=== PATIENT | female | born 1975 | race Caucasian/White ===

== ENCOUNTER 2019-01-19 09:15 | Outpatient (CLI) | payer BC, SELFPAY ==
--- NOTE | 2019-01-19 15:00 | DI.RAD_ITS ---
EXAM: XR ELBOW RT COMPLETE CLINICAL HISTORY: RIGHT ELBOW PAIN M,77.11 LATERAL EPICONDYLITIS TECHNIQUE: COMPARISON: No exams were available for comparison FINDINGS: Four views were obtained. There is no evidence of elbow joint effusion or hemarthrosis. No bony or soft tissue abnormality seen. IMPRESSION:
== END 2019-01-19 09:35 ==
PROVIDERS: PCP Nurse Practitioner Family; Visit Provider Student in an Organized Health Care Education/Training Program
DX: M77.11 Lateral epicondylitis, right elbow (principal); M25.521 Pain in right elbow
CPT/HCPCS: 73080

== ENCOUNTER 2019-01-23 01:15 | Outpatient (CLI) | payer BC, SELFPAY ==
--- NOTE | 2019-01-23 10:00 | DI.MRI_ITS ---
EXAM: MR UPPER JOINT RT WO CLINICAL HISTORY: continued severe lateral epicondylitis M77.11 lateral Epicondylitis rt elbow. TECHNIQUE: Multiplanar multisequence MRI was performed. COMPARISON: XR ELBOW RT COMPLETE from 01/19/2019 FINDINGS: There is hyperintense signal seen within the common extensor tendon consistent with lateral epicondyl itis. The common flexor tendon appears intact as do the biceps tendon and the triceps tendon. The ulnar collateral ligament appears unremarkable. The radial collateral ligament appears thickened with increased signal. This is consistent with a sp rain. There is normal marrow signal no evidence of an occult fracture or avascular necrosis is identified. The articular cartilage appears grossly unremarkable. There is a small amount of fluid in the joint space. The muscles show normal signal in size. No significant muscular fatty atrophy is identified. No evidence of a soft tissue mass or focal fluid collection is appreciated. IMPRESSION: Findings consistent with lateral epicondylitis and sprain of the radial collateral ligament.
== END 2019-01-23 01:35 ==
PROVIDERS: PCP Nurse Practitioner Family; Visit Provider Student in an Organized Health Care Education/Training Program
DX: M77.11 Lateral epicondylitis, right elbow (principal); S53.431D Radial collateral ligament sprain of right elbow, subsequent encounter
CPT/HCPCS: 73221

== ENCOUNTER 2019-03-17 05:59 | Day surgery (SDC) | payer BC, SELFPAY ==
[2019-03-17] VITALS (7 sets, daily range): BP systolic 70–114; BP diastolic 26–72; PULSE 60–85; RESP 16–20; TEMP 36.5–36.9; O2SAT 97–100
[2019-03-17] MEDS: Lactated Ringers 1,000 ML 100 ML IV (06:32)
[2019-03-17] MEDS: ceFAZolin 2 GM/50 ML BAG IVPB (07:45)
[2019-03-17] MEDS: EPINEPHrine 30 MG/30 ML VIAL (08:56)
[2019-03-17] MEDS: Lactated Ringers 1,000 ML 30 ML IV (09:30)
--- NOTE | 2019-03-17 09:48 | W.PM.DSUDISC ---
Discharge Plan Disposition Patient Disposition: HOME Condition: Stable Discharge Details Reason For Visit: Right elbow surgery Attending Provider: Rayo Adorno Primary Care Provider: Yuri Morales Home Meds and New Rx's Prescriptions: New naproxen 250 mg tablet 250 - 500 mg PO BID PRN (Reason: pain, moderate) Qty: 30 RF: 0 aspirin 81 mg tablet,delayed release (DR/EC) 81 mg PO DAILY 14 Days Qty: 14 RF: 0 oxycodone 5 mg tablet 5 - 10 mg PO Q4H PRN (Reason: pain, severe) Qty: 9 RF: 0 Continued [id number] [Zffuvi-Mapci-ZTQ (with antiox)] 500-500-66.7 mg tablet 1 tab PO DAILY RF: 0 omega-3 fatty acids-fish oil [Fish Oil] 300-1,000 mg capsule 2 cap PO DAILY RF: 0 ascorbic acid (vitamin C) [Vitamin C] 500 MG tablet 500 mg PO DAILY RF: 0 multivitamin [Daily Multi-Vitamin] 1 EACH tablet 1 ea PO DAILY RF: 0 lysine HCl 500 MG tablet 1 tab PO DAILY RF: 0 Discharge Instructions Additional Instructions: Surgery: Right elbow arthroscopy with debridement lateral epicondylitis Activity: Advance to weightbearing as tolerated. Daily home range of motion exercises to restore full elbow extension and flexion. No heavy lifting or manual labor for at least 2 weeks. Prescriptions: Aspirin 81 mg take 1 daily to prevent a blood clot for 2 weeks Naproxen 250 mg take 1-2 every 12 hours with a meal as needed for moderate pain Oxycodone 5 mg take 1-2 every 4-6 hours as needed for severe pain You may use qkof-frr-kpmmgox Tylenol (acetaminophen) as needed for mild pain. These pain medications may be taken all at once or in different combinations as needed. Also, recommend Colace (docusate) as a stool softener as surgery and pain medicine cause constipation. Dressings: Leave dressing in place for 2-3 days. May then remove and leave open to air or cover incisions with Band-Aids. May shower after 5 days. Follow-up: 10-[address] Adorno Please call the office during business hours with any questions or concerns. Let us know right away if you develop any redness, drainage, fevers, chest pain, or trouble breathing. Do not drink alcohol or drive for at least 24 hours after anesthesia. Stand Alone Forms: DSU Post op Instructions, Press Anais (DSU) Referrals: Rayo Adorno MD [ [facility] STAFF PHYSICIAN] - Discharge Orders Discharge Orders: Discharge Order (Routine); Ordered 03/17/19 Ordered By: Rayo Adorno DS: Diagnosis Discharge Diagnosis (1) Right lateral epicondylitis: Status: Acute
--- NOTE | 2019-03-17 12:13 | W.PM.OP ---
Date of service: 03/17/19 Time of Service: 09:49 Operative Note Operative Note DATE OF PROCEDURE: 03/17/19 PRE-OP DIAGNOSIS: Right elbow lateral epicondylitis POST-OP DIAGNOSIS: same PROCEDURE: 1. Right elbow diagnostic arthroscopy 2. Right elbow debridement lateral epicondylitis including lateral epicondyle bone and ECRB tendon SURGEON: Rayo Adorno HOTBED OPERATOR: Gisel Jj ANESTHESIA: GETA and local ESTIMATED BLOOD LOSS: 5 TOURNIQUET TIME: 0 COMPLICATIONS: None Patient was transported to: PACU Patient's condition: stable Indications: Please see complete medical record for details. Procedure Description: The patient was taken to the operating room and transferred to the operating room table. Anesthesia was induced. All bony prominences were well-padded. Preoperative antibiotics were administered. The right elbow was prepped and draped in the usual sterile fashion. The correct patient, procedure, and side of the procedure were all verified prior to incision. 20 cc of normal saline were used to insufflate the right elbow joint through the lateral soft spot. The irina and spread technique was used to establish the proximal anteromedial portal. Initially the 2.7 mm arthroscope was inserted however this was too small and switched for a 4.0 mm arthroscope. A diagnostic arthroscopy of the anterior elbow compartment was performed showing some degeneration and fraying and thickening of the ECRB tendon origin at the lateral epicondyle. Otherwise the cartilage surfaces were normal of the radial head, capitellum, coronoid, distal humerus. There was mild synovitis laterally and medially. A spinal needle was used to localize a modified direct lateral working portal for lateral epicondyle debridement. The spinal needle was used to set the superior and inferior margins of the resection as well as free up disease tissue from its bony origin. Next a 15 blade was used to irina the skin followed by straight snap to spread down to the ECRB diseased tissue and the 15 blade was used in a meticulous fashion to release the ECRB tendon from the lateral epicondyle. Starting with a 3.5 mm full-radius shaver and then a 3.5 mm ultra aggressive shaver approximately 1 cm of ECRB origin tendon tissue was debrided and resected. The lateral epicondyle bony origin was lightly abraded to remove soft tissue remnant and ideally allow release of growth factors for healing. The elbow was drained of arthroscopic fluid. The medial and lateral portals were closed using 3-0 Monocryl in a buried interrupted fashion. Mastisol was applied about the incisions which were covered with Steri-Strips. 10 cc of 0.25% bupivacaine with epinephrine was injected into the elbow joint through the lateral previously used insufflation site. Xeroform pieces were applied over both incisions and injection site. The elbow was wrapped in sterile soft roll and then an Clyde wrap. The patient awoke from anesthesia without complication and was transferred to the recovery room in stable fashion. She was examined later in the day surgery unit and found to comfortable and completely neurovascularly intact to the medial, radial, ulnar nerves with 2+ radial pulse.
== END 2019-03-17 11:55 | disposition home or self-care (01) ==
PROVIDERS: PCP Nurse Practitioner Family; Visit Provider Student in an Organized Health Care Education/Training Program
PROC: (CPT 24341; principal; 2019-03-17 07:30)
DX: M77.11 Lateral epicondylitis, right elbow (principal); M65.9 Synovitis and tenosynovitis, unspecified
CPT/HCPCS: 29837; J0131; J0690; J1100; J1885; J2250

== ENCOUNTER 2020-02-20 00:57 | Outpatient (CLI) | payer BC, SELFPAY ==
--- NOTE | 2020-02-20 07:50 | DI.MAMMO_ITS ---
EXAM: MG MAMMO SCREENING CLINICAL HISTORY: screening TECHNIQUE: Mammograms were interpreted according to the usual protocol including computer analysis w [employer] CAD system, tomosynthesis and C-view imaging. COMPARISON: FINDINGS: The breasts are heterogeneously dense. Examination compared to previous examination of June 2014. Couple of vaguely rounded areas of masslike radiodensity were seen on prior examination, however on t keith's examination there are multiple new areas of masslike nodularity seen bilaterally, the largest about 19 millimeters in diameter in the central portion of the left breast. These are of fairly low radiodensity and appear well circumscribed as visualized tomosynthesis views, these may represent cys ts, however solid mass lesions are not excluded and correlation with bilateral breast ultrasound is r ecommended. No suspicious clumped microcalcification seen., IMPRESSION: Breast ultrasound recommended bilaterally for evaluation of masslike rounded well-circumscribed radio densities seen in each breast. BI-RADS Category 0 - Assessment Incomplete: Need additional imaging evaluation Breast Density - Category C - Heterogeneously dense
== END 2020-02-20 01:17 ==
PROVIDERS: PCP Nurse Practitioner Family; Visit Provider Obstetrics & Gynecology Gynecology
DX: Z12.31 Encounter for screening mammogram for malignant neoplasm of breast (principal); R92.8 Other abnormal and inconclusive findings on diagnostic imaging of breast
CPT/HCPCS: 77063; 77067

== ENCOUNTER 2020-02-23 02:19 | Outpatient (CLI) | payer BC, SELFPAY ==
--- NOTE | 2020-02-23 | DI.US_ITS ---
EXAM: US BREAST LT COMPLETE CLINICAL HISTORY: F/U MAMMO, NEW AREAS MASS LIKE RADIODENSITY BILATERALLY TECHNIQUE: Ultrasound right breast performed using standard protocol. COMPARISON: MG Screening Bilat Mammo from 07/09/2014 MG MG MAMMO SCREENING from 02/20/2020 US US BREAST RT COMPLETE from 02/23/2020 US US BREAST RT COMPLETE from 02/23/2020 FINDINGS: The recent mammogram showed multiple circumscribed nodules. There is a a 2 centimeter cyst in the lo wer outer quadrant. A 14 millimeters cyst is seen in the 9 o'clock position medial to the nipple. A 14 millimeter cyst is seen in the subareolar region. There are other smaller cysts. No suspicious masses are identified. IMPRESSION: Multiple cysts. No sonographically suspicious finding. Yearly screening mammography is recommended . BI-RADS Category 2 - Benign Findings DATA REPOSITORY:
--- NOTE | 2020-02-23 | DI.US_ITS ---
EXAM: US BREAST RT COMPLETE CLINICAL HISTORY: F/U MAMMO, NEW AREAS MASS LIKE DENSITY TECHNIQUE: Ultrasound right breast performed using standard protocol. COMPARISON: MG Screening Bilat Mammo from 07/09/2014 MG MG MAMMO SCREENING from 02/20/2020 FINDINGS: There are multiple cysts seen throughout the breast. A 1.1 centimeter cyst is seen in the 11 o'clock position 1 cm from the nipple. Additional 12 medial millimeters cyst is seen in the subareolar merlyn on. There are 2 adjacent cysts in the upper outer quadrant measuring less than 1 cm. A 12 millimete r cyst is seen in the 12 o'clock position. A 10 millimeter cyst is seen in the lower inner quadrant. Centimeter cyst no solid masses, hypoechoic foci, areas of abnormal shadowing, or areas of skin th ickening. IMPRESSION: Multiple cysts throughout the breast. No solid masses. No sonographically suspicious finding. Yearl y screening mammography is recommended. BI-RADS Category 2 - Benign Findings DATA REPOSITORY:
== END 2020-02-23 02:39 ==
PROVIDERS: PCP Nurse Practitioner Family; Visit Provider Obstetrics & Gynecology Gynecology
DX: R92.8 Other abnormal and inconclusive findings on diagnostic imaging of breast (principal); N60.02 Solitary cyst of left breast; N60.01 Solitary cyst of right breast
CPT/HCPCS: 76642

== ENCOUNTER 2022-04-01 01:49 | Outpatient (CLI) | payer BC, SELFPAY ==
--- NOTE | 2022-04-01 09:15 | DI.MAMMO_ITS ---
Exam(s) MAMMO SCREENING EXAM: MAMMO SCREENING CLINICAL HISTORY: screening. TECHNIQUE: Bilateral full field digital CC and MLO mammographic images were obtained with 3D tomosyn thesis and utilizing computer aided detection (CAD). COMPARISON: Prior mammograms were reviewed. Prior breast ultrasound of February 2020 was also reviewed. FINDINGS: Fibroglandular tissue pattern is again noted be moderately dense, this somewhat decreasing the sensit ivity mammogram for finding hidden underlying lesions. Well demarcated nodular densities are again noted throughout both breasts, these having been shown to be cysts by prior ultrasound examination of February 2020. However, there is a least 1 new addition al nodule in the upper quadrant of the left breast measuring approximately 1.9 by 1.6 cm and located 7 cm in from the nipple. This may be a cyst which has increased in size but will still require ultra sound to ensure cysts from solid components. Few of the other nodules have also increased in size. In the opposite-right breast there is a microcalcification group located 5 cm in from the nipple on t he MLO view which will require spot Mag 2D view. This is more evident than on prior mammograms. There is no significant architectural distortion nor skin thickening-retraction. IMPRESSION: Dense bilateral fibroglandular tissue. Bilateral findings which require further investigation: 1. Spot Mag view of right breast microcalcification group 2. Spot compression view left breast nodule. Also left breast ultrasound. BI-RADS Category 0 - Assessment Incomplete: Need additional imaging evaluation Breast Density - Category C - Heterogeneously dense Breast density Category C or D implies that the patient has dense breast tissue. Dense breast tissue can make it harder to find cancer on a mammogram. Dense breast tissue is also associated with an incr eased risk of breast cancer. This information about the result of the mammogram report was provided to the patient to raise their awareness. Use this report when you speak with the patient about their risks for breast cancer, which includes their family history. At that time, you may recommend additional screening tests (Ultrasoun d or MRI) as these tests may add significant information. A negative radiographic report should not delay biopsy if a dominant or clinically suspicious mass is present. Up to ten percent of cancers are not identified on mammography. A negative report may reinforce clinical impression. Adenosis and dense breasts may obscure an underlying neoplasm. False positive reports average 6 to 10%. Patient will receive a letter notifying them of these results.
== END 2022-04-01 02:09 ==
LOC: DI 01:49
PROVIDERS: PCP Nurse Practitioner Family; Visit Provider Obstetrics & Gynecology Gynecology
DX: Z12.31 Encounter for screening mammogram for malignant neoplasm of breast (principal); R92.8 Other abnormal and inconclusive findings on diagnostic imaging of breast
CPT/HCPCS: 77063; 77067

== ENCOUNTER 2022-04-03 00:35 | Outpatient (CLI) | payer BC, SELFPAY ==
--- NOTE | 2022-04-03 | DI.US_ITS ---
Exam(s) US BREAST LT LIMITED MG MAMMO SCREEN CALL BACK BI EXAM: MG MAMMO SCREEN CALL BACK BI and U/S breast LT limited CLINICAL HISTORY: F/U MAMMO, R92.8,1 NEW NODULE LT BREAST. TECHNIQUE: Craniocaudal and mediolateral oblique Full Field Digital Mammography views of the bilater al breast with Computer Aided Diagnosis followed by Tomosynthesis and left breast ultrasound. COMPARISON: Comparison is made with prior examinations. FINDINGS: Mammography/Tomosynthesis: Masses/Architectural Distortion: There is again seen a well-circumscribed nodule in the outer left br east on the additional CC view. Microcalcifictions: No suspicious pleomorphic-type are seen. Tiny punctate calcifications are again s een in the posterior left breast. There has been no significant change compared to prior examination s. Skin Thickening/Nipple Retraction: None. Limited left breast US: Echotexture: Normal appearance of the glandular tissue. Shadowing: No suspicious foci. Cyst: Multiple cysts are seen in the left breast. The largest is at the 4 o'clock position 3 cm from the nipple and measures 1.9 x 0.5 x 2.2 cm. Solid lesions: There is a 0.7 x 0.6 x 0.9 cm well-circumscribed hypoechoic nodule at the 1 o'clock po sition 1 cm from the nipple. No sonographically suspicious nodules are seen. Ductal dilation: None. IMPRESSION: 1. No definite evidence for malignancy. 2. A six-month follow-up left breast ultrasound is requested for re-evaluation. 3. The findings were discussed with the patient on the date of the examination. BI-RADS Category 3 - 6 month - Probably Benign Finding: Recommend follow-up imaging in 6 months Breast Density - Category C - Heterogeneously dense Breast density Category C or D implies that the patient has dense breast tissue. Dense breast tissue can make it harder to find cancer on a mammogram. Dense breast tissue is also associated with an incr eased risk of breast cancer. This information about the result of the mammogram report was provided to the patient to raise their awareness. Use this report when you speak with the patient about their risks for breast cancer, which includes their family history. At that time, you may recommend additional screening tests (Ultrasoun d or MRI) as these tests may add significant information. A negative radiographic report should not delay biopsy if a dominant or clinically suspicious mass is present. Up to ten percent of cancers are not identified on mammography. A negative report may reinforce clinical impression. Adenosis and dense breasts may obscure an underlying neoplasm. False positive reports average 6 to 10%. Patient will receive a letter notifying them of these results.
== END 2022-04-03 00:55 ==
LOC: DI 00:36
PROVIDERS: PCP Nurse Practitioner Family; Visit Provider Obstetrics & Gynecology Gynecology
DX: Z12.31 Encounter for screening mammogram for malignant neoplasm of breast (principal); R92.8 Other abnormal and inconclusive findings on diagnostic imaging of breast; R92.2 Inconclusive mammogram
CPT/HCPCS: 76642; 77063; 77067

== ENCOUNTER → 2023-04-05 03:35 | Outpatient (CLI) | payer BC, SELFPAY ==
--- NOTE | 2023-04-05 08:30 | DI.MAMMO_ITS ---
Exam(s) MAMMO SCREENING EXAM: MAMMO SCREENING CLINICAL HISTORY: screening,Z12.39 TECHNIQUE: Mammograms were interpreted according to the usual protocol including computer analysis w [employer] CAD system, tomosynthesis and C-view imaging. COMPARISON: 2014 through 2022 FINDINGS: The breasts are composed of heterogeneously dense fibroglandular densities, Breast Density category C . No suspicious masses or suspicious microcalcifications are seen. Circumscribed areas of nodularity a re again noted in both breasts, consistent with cysts noted on prior ultrasounds. No skin thickening or abnormal axillary lymph nodes are seen. There has been no significant change from prior exams. IMPRESSION: BI-RADS Category 2 - Negative Mammogram with benign findings. Yearly screening mammography is recom mended. Breast Density Category C, heterogeneously Dense. The mammogram demonstrates the patient's breast tissue is dense. Dense breast tissue is very common a nd is not abnormal but dense breast tissue can make it harder to find cancer on a mammogram. Also, de nse breast tissue may increase breast cancer risk. This information about the result of the mammogram report was provided to the patient to raise their awareness. Use this report when you speak with the patient about their risks for breast cancer, which includes their family history. At that time, you may recommend additional screening tests (Ultrasound or MRI) as they might be useful based on their r isk. A negative radiographic report should not delay biopsy if a dominant or clinically suspicious mass is present. Up to ten percent of cancers are not identified on mammography. A negative report may reinforce clinical impression. Adenosis and dense breasts may obscure an underlying neoplasm. False positive reports average 6 to 10%.
== END ==
PROVIDERS: PCP Nurse Practitioner Family; Visit Provider Obstetrics & Gynecology Gynecology
DX: Z12.31 Encounter for screening mammogram for malignant neoplasm of breast (principal)
CPT/HCPCS: 77063; 77067

== ENCOUNTER 2023-10-22 11:01 | Outpatient (REF) | payer BC, SELFPAY ==
--- NOTE | 2023-10-22 10:10 | PAPFT_PTH ---
PATIENT: Brit Borja LOC: [facility]#:[id number] AGE/SX: 48/F ROOM: RE10/22/[address]: Gini Perkins : 1975 BED: DIS: 10/22/2023 SPEC #: [id number] RECD: 10/22/23 12:43 STATUS: KATIE REQ #: [id number] GERARDO: 10/22/23 10:[address]: Gini Perkins DEPT: [facility] Cytology RECD BY: Steffanie Frye ENTERED: 10/22/23 12:43 SP TYPE: PAPFT OTHR DR: Yuri Morales Tissues: 1 - CX/ENDOCX FOR PAP SMEARS Procedures: PAP THIN PREP/UVM Screening HPV DNA PROBE Comments: [id number] (HPV 16 & 18/45)
== END 2023-10-22 11:02 | disposition home or self-care (01) ==
LOC: LBN 11:01
PROVIDERS: PCP Nurse Practitioner Family; Visit Provider Obstetrics & Gynecology Gynecology
DX: N60.02 Solitary cyst of left breast (principal)
CPT/HCPCS: 88142; 87624

== ENCOUNTER 2024-05-05 00:29 | Outpatient (CLI) | payer BC, SELFPAY ==
--- NOTE | 2024-05-05 | DI.RAD_ITS ---
Exam(s) XR HIP PELVIS ADULT BL EXAM: XR HIP PELVIS ADULT BL CLINICAL HISTORY: PAIN UNSPECIFIED HIP,M25.559. TECHNIQUE: 2D digital imaging was performed of the pelvis and bilateral hips. Three images were obt ained. AP pelvis and lateral views of both hips were obtained. COMPARISON: No exams were available for comparison FINDINGS: BONES: No acute fracture is present. No bony destructive lesion is seen. JOINTS: No dislocation present. SOFT TISSUE: Normal. IMPRESSION: Unremarkable radiographs of bilat hips. Unremarkable radiographs of the pelvis DATA REPOSITORY: RADIATION DOSE DELIVERED:
== END 2024-05-05 00:49 ==
LOC: DI 00:29
PROVIDERS: PCP Nurse Practitioner Family; Visit Provider Nurse Practitioner Family
DX: M25.551 Pain in right hip (principal); M25.552 Pain in left hip
CPT/HCPCS: 73521

== ENCOUNTER 2024-05-08 01:34 | Outpatient (CLI) | payer BC, SELFPAY ==
--- NOTE | 2024-05-08 07:41 | DI.US_ITS ---
Exam(s) US BREAST RT COMPLETE MG MAMMO DIAGNOSTIC BI EXAM: MG MAMMO DIAGNOSTIC BI CLINICAL HISTORY: Dominant mass right breast 2 x 2 cm,cyst lt breast,n63.10. COMPARISON: US US BREAST RT COMPLETE from 02/23/2020 MG MG MAMMO SCREENING from 04/01/2022 MG MG MAMMO SCREEN CALL BACK BI from 04/03/2022 US US BREAST LT LIMITED from 04/03/2022 US US BREAST LT COMPLETE from 10/13/2022 US US BREAST RT COMPLETE from 05/08/2024 TECHNIQUE: Craniocaudal and mediolateral oblique Full Field Digital Mammography views of both breast s with Computer Aided Diagnosis followed by Tomosynthesis and right breast ultrasound. FINDINGS: Mammography/Tomosynthesis: Masses: Multiple bilateral circumscribed nodules are noted. The size of the nodules appear to have d ecreased on the left and appears grossly stable on the right. Architectural Distortion: None seen. Microcalcifications: No suspicious pleomorphic-type are seen. Skin Thickening/Nipple Retraction: None. Right breast US: Echotexture: Normal appearance of the glandular tissue. Shadowing: No suspicious foci. Cyst: Multiple cysts are noted throughout the breast. The largest is at the 10 o'clock position, 3 c m from the nipple measuring 19 x 16 x 15 millimeters. This corresponds to the palpable abnormality. Solid lesions: None seen. Ductal dilation: None. IMPRESSION: 1. No evidence of malignancy is noted. Palpable abnormality corresponds to a 19 millimeter cyst. 2. Unless there is more urgent need, follow-up screening mammography is recommended, as per [place] [employer] guidelines. BI-RADS Category 2 - Benign Findings Breast Density - Category C - Heterogeneously dense Breast density category C or D implies that the patient has dense breast tissue. Dense breast tissue is very common and is not abnormal but dense breast tissue can make it harder to find cancer on a ma mmogram. Also, dense breast tissue may increase their breast cancer risk. This information about the result of the mammogram report was provided to the patient to raise their awareness. Use this report when you speak with the patient about their risks for breast cancer, which includes their family hist ory. At that time, you may recommend for more screening tests (Ultrasound or MRI) as they might be us eful based on their risk. A negative radiographic report should not delay biopsy if a dominant or clinically suspicious mass is present. Up to ten percent of cancers are not identified on mammography. A negative report may reinforce clinical impression. Adenosis and dense breasts may obscure an underlying neoplasm. False positive reports average 6 to 10%. Patient will receive a letter notifying them of these results.
== END 2024-05-08 01:54 ==
LOC: DI 01:34
PROVIDERS: PCP Nurse Practitioner Family; Visit Provider Obstetrics & Gynecology Gynecology
DX: N60.02 Solitary cyst of left breast (principal); Z12.31 Encounter for screening mammogram for malignant neoplasm of breast
CPT/HCPCS: 76642; 77062; 77066; G0279